=== PATIENT | female | born 1935 | race Hispanic/Latino ===

== ENCOUNTER 2017-03-05 12:42 | Inpatient (IN) | payer MEDICARE ==
[2017-03-05] MEDS ORDERED: MORPHINE ONE (13:12)
[2017-03-05] MEDS ORDERED: MORPHINE IV ONE ×2 (13:35→14:40)
--- NOTE | 2017-03-05 14:35 | XRay Report ---
Left hip 2 views: History: Fall injury left hip pain. Impression: Suspicion of minimally impacted fracture neck of left femur noted. No dislocation or soft tissue calcification. Impression: Suspicion of minimally impacted fracture neck of left femur.
[2017-03-05] MEDS ORDERED: ZOFRAN IV ONE (14:41)
[2017-03-05 15:24] LABS: INR 1.01 (0.87-1.13)
[2017-03-05 15:25] LABS: Partial Thromboplastin Time 26.4 Sec. (24.2-36.6)
[2017-03-05 15:33] LABS: Hematocrit 41.9 % (30.3-42.9); Hemoglobin 13.9 gm/dl (10.1-14.3); Mean Corpuscular HGB Conc 33 % (30-34); Mean Corpuscular Hemoglobin 31 pg (28-32); Mean Corpuscular Volume 94 fl (79-97); Platelet Count 124 K/mm3 (140-440); Red Blood Count 4.45 M/mm3 (3.65-5.03); Red Cell Distribution Width 13.4 % (13.2-15.2); White Blood Count 16.8 K/mm3 (4.5-11.0)
[2017-03-05 15:34] LABS: Alanine Aminotransferase 22 units/L (7-56); Albumin 4.5 g/dL (3.9-5); Albumin/Globulin Ratio 1.4 %; Alkaline Phosphatase 71 units/L (35-129); Anion Gap 21 mmol/L; Blood Urea Nitrogen 13 mg/dL (7-17); Calcium 8.7 mg/dL (8.4-10.2); Carbon Dioxide 23 mmol/L (22-30); Chloride 97.9 mmol/L (98-107); Glucose 91 mg/dL (65-100); Potassium 4.4 mmol/L (3.6-5.0); Sodium 137 mmol/L (137-145); Total Protein 7.7 g/dL (6.3-8.2)
--- NOTE | 2017-03-05 15:39 | Admit Criteria Form ---
Admission Criteria Documentation: MUSCULOSKELETAL DISEASE GRG Clinical Indications for Admission to Inpatient Care (Place 'X' for any and all applicable criteria): Hospital admission is needed for appropriate care of the patient because of 1 or more of the following: [X ]I. Fracture, dislocation, or other musculoskeletal injury requiring inpatient care(medical) as indicated by 1 or more of the following(4)(5)(6)(7) [ ]a) Vertebral fracture requiring observation for instability or neurologic compromise (8) [ ]b) Compartment syndrome (proven or cannot be ruled out during observation level of care) (9) [ ]c) Limb-threatening injury [ ]d) Major injury requiring inpatient stabilization such as traction initiation or external fixation before internal fixation or closure of complex or open fracture [X ]e) Major injury requiring inpatient treatment after emergency or observation level care (as appropriate) [ ]f) Severe pain requiring acute inpatient management [ ]g) Injury with suspicion of abuse or neglect (eg., child, dependent elderly) [ ]II. Newly diagnosed or suspected bone, joint, or orthopedic device infection (e.g., osteomyelitis, septic arthritis) needing 1 or more of the following(1)(2)(3) [ ]a) IV antibiotics that cannot be initiated in other than inpatient setting (e.g., patient too unstable or home infusion not available) [ ]b) Device removal or replacement [ ]c) Bone or soft tissue debridement [ ]d) Joint drainage (drain placement or repetitive aspirations) [ ]III. Severe rheumatologic disease (e.g., systemic lupus erythematosus, rheumatoid arthritis) with complications or comorbidities (Also use Optimal Recovery Care Criteria or General Recovery Criteria as appropriate on the basis of predominant condition), including 1 or more of the following( 10)(11)(12)(13) [ ]a) Severe infection (e.g., LAST IRONER infection, sepsis) (14) [ ]b) Respiratory complications, including 1 or more of the following : [ ]i) Pleural effusion with respiratory compromise [ ]ii) Pulmonary hypertension with congestive failure [ ]iii) Respiratory failure [ ]iv) Pulmonary hemorrhage (15) [ ]c) Hematologic disease, including 1 or more of the following: [ ]i) Coagulopathy with bleeding [ ]ii) Thrombosis with hypercoagulable state [ ]iii) Thrombotic thrombocytopenic purpura [ ]d) Cerebritis with seizures, psychosis, or other severe abnormalities [ ]e) Vertebral destruction with monitoring needed for cervical myelopathy& possible respiratory compromise [ ]f) Exacerbation that requires inpatient treatment (e.g., intravenous immunosuppression) (16) [ ]g) Acute renal failure [ ]h) Cerebritis with seizures, psychosis, Altered mental status, or other neurologic abnormalities [ ]i) Pericardial effusion with tamponade [ ]j) Vertebral destruction, with monitoring needed for cervical myelopathy and possible respiratory compromise [ ]IV. Severe vasculitis with complications or comorbidities (Also use Optimal Recovery Care Criteria General Recovery Criteria as appropriate on the basis of predominant condition), including 1 or more of the following(11)(12)(17)(18)(19)(20) [ ]a) Exacerbation that requires inpatient treatment (e.g., intravenous immunosuppression) (19)(21) [ ]b) Pulmonary hemorrhage (15) [ ]c) LAST IRONER vasculitis with seizures, psychosis, Altered mental status that is severe or persistent, or other severe abnormalities (22) [ ]d) Cerebral infarction [ ]e) Gastrointestinal ischemia [ ]f) Gangrene or threatened amputation [ ]g) Renal failure (16) [ ]h) Other significant complications of vasculitis ( eg., tissue or organ ischemia, organ dysfunction ) [ ]V. Severe myopathy as indicated by 1 or more of the following (28)(29) [ ]a) New onset of airway compromise or inability to swallow [ ]b) Respiratory deterioration with observation needed for impending respiratory failure [ ]c) Exacerbation that requires inpatient treatment (e.g., intravenous immunosuppression) [ ]. Severe crystal gout (arthropathy) indicated by 1 or more of the following (23)(24) [ ]a) Severe pain requiring acute inpatient management [ ]b) Exacerbation that requires inpatient treatment (e.g., intravenous treatment) [ ]VII.Rhabdomyolysis and 1 or more of the following (25)(26)(27) [ ]a) Acute renal failure [ ]b) Need for intravenous hydration after emergency or observation level care (as appropriate) [ ]c) Inability to maintain oral hydration [ ]d) Change in mental status [ ]e) Electrolyte abnormality that remains after emergency or observation level care (as appropriate) [ ]VIII Post amputation complication, as indicated by ANY ONE of the following [ ]a) Infection [ ]b) Dehiscence [ ]c) Myodesis failure [ ]IX. Severe pain requiring acute inpatient management due to musculoskeletal condition [ ]X. Musculoskeletal Disease and ALL of the following: [ ]a) Symptom or finding for which emergency and observation care have failed or are not considered appropriate (Use General Criteria: Observation Care as appropriate) [ ]b) Presence of ANY ONE of the following [ ]i) A General Admission Criteria [ ]ii) A Pediatric General Admission Criteria The original [facility] [employer] content created by [facility] [employer] has been revised. The portions of the content which have been revised are identified through the use of italic text or in bold, and [facility] has neither reviewed nor approved the modified material. All other unmodified content is copyright [facility] [employer]. Please see references footnoted in the original [facility] edition 2016 Admission Criteria Met: Yes
[2017-03-05 15:41] LABS: Bilirubin,Direct < 0.2 mg/dL (0-0.2); Bilirubin,Indirect 0.4 mg/dL
--- NOTE | 2017-03-05 15:45 | Cat Scan Report ---
CT scan of the left hip: History: Fall from pain. Findings: There is minimal cortical buckling noted in the superior lateral aspect of the neck of left femur associated with impaction of trabecula in the region of the neck. No soft tissue calcification. No periosteal reaction or lytic lesion. The acetabulum appears unremarkable. Impression: Minimal buckle fracture superior lateral posterior neck as detailed above. No abnormal articulation at the hip.
[2017-03-05 17:57] LABS: Blastocytes % (Manual) 0 %
[2017-03-05 17:58] LABS: Diff Status Complete; Large Platelets 1+; Platelet Estimate Consistent w Auto; RBC Morphology Normal
--- NOTE | 2017-03-05 18:53 | Emergency Department Report ---
ED General Adult HPI - General Chief complaint: Fall Stated complaint: LEFT HIP PAIN/FALL Time Seen by Provider: 03/05/17 14:14 Source: EMS Mode of arrival: Stretcher Limitations: Altered Mental Status - History of Present Illness Initial comments: Patient states that she was getting up off the couch when she stumbled and fell. She fell down she states "slightly" onto her left hip. She denies any vertigo dizziness episodic weakness or syncope. She did not lose consciousness. She states she has no prior history of hip fracture. She complains of severe pain to the left hip only. She denies any other injury. She was unable to weight bear thereafter. -: Gradual Location: left (hip) Radiation: non-radiation Quality: constant Consistency: constant Improves with: none Worsens with: movement Associated Symptoms: denies other symptoms - Related Data Home Medications Medication Instructions Recorded Confirmed Last Taken Acetaminophen/Diphenhydramine 1 each PO QHS 03/05/17 03/05/17 03/04/17 [Tylenol Pm Ex-Strength Caplet] amLODIPine [Norvasc] 10 mg PO DAILY 03/05/17 03/05/17 03/05/17 Previous Rx's Medication Instructions Recorded Last Taken Type Albuterol Sulfate [Albuterol 0.63% 0.63 mg IH TID PRN #90 ml 12/26/14 Unknown Rx NEBS] Allergies Allergy/AdvReac Type Severity Reaction Status Date / Time cephaeline [Cephaeline] Allergy Rash Verified 09/20/13 16:48 codeine Allergy Rash Verified 09/20/13 16:48 iodine Allergy Rash Verified 09/20/13 16:48 Penicillins Allergy Rash Verified 09/20/13 16:48 ED Review of Systems ROS: Stated complaint: LEFT HIP PAIN/FALL Other details as noted in HPI Constitutional: denies: chills, fever Eyes: denies: eye pain, eye discharge, vision change ENT: denies: ear pain, throat pain Respiratory: denies: cough, shortness of breath, wheezing Cardiovascular: denies: chest pain, palpitations Endocrine: no symptoms reported Gastrointestinal: denies: abdominal pain, nausea, diarrhea Genitourinary: denies: urgency, dysuria, discharge Musculoskeletal: as per HPI. denies: back pain, joint swelling Skin: denies: rash, lesions Neurological: denies: headache, weakness, paresthesias Psychiatric: denies: anxiety, depression Hematological/Lymphatic: denies: easy bleeding, easy bruising ED Past Medical Hx - Past Medical History Hx Hypertension: Yes Hx Congestive Heart Failure: No Hx Sickle Cell Disease: Yes Hx Asthma: Yes Hx COPD: Yes Hx Tuberculosis: No Additional medical history: AORTIC ANEURYSM - Surgical History Hx Appendectomy: Yes Hx Breast Surgery: Yes (tumor removal) Additional Surgical History: hysterectomy - Social History Smoking Status: Never Smoker Substance Use Type: None - Medications Home Medications: Home Medications Medication Instructions Recorded Confirmed Last Taken Type Albuterol Sulfate [Albuterol 0.63% 0.63 mg IH TID PRN #90 ml 12/26/14 Unknown Rx NEBS] Acetaminophen/Diphenhydramine 1 each PO QHS 03/05/17 03/05/17 03/04/17 History [Tylenol Pm Ex-Strength Caplet] amLODIPine [Norvasc] 10 mg PO DAILY 03/05/17 03/05/17 03/05/17 History ED Physical Exam - General Limitations: No Limitations General appearance: alert, in no apparent distress - Head Head exam: Present: atraumatic, normocephalic - Eye Eye exam: Present: normal appearance - ENT ENT exam: Present: normal exam, mucous membranes moist - Neck Neck exam: Present: normal inspection - Respiratory Respiratory exam: Present: normal lung sounds bilaterally. Absent: respiratory distress - Cardiovascular Cardiovascular Exam: Present: regular rate, normal rhythm. Absent: systolic murmur, diastolic murmur, rubs, gallop - GI/Abdominal GI/Abdominal exam: Present: soft, normal bowel sounds. Absent: distended, tenderness, guarding, rebound, rigid - Extremities Exam Extremities exam: Present: other (there is guarding and exquisite tenderness on slight rotation of the left femur. There is no bony deformity. The pelvis does not appear to be tender. There is no shortening or internal rotation.) - Back Exam Back exam: Present: other (deferred due to nature of the injury) - Neurological Exam Neurological exam: Present: alert, oriented X3, CN II-XII intact. Absent: motor sensory deficit - Psychiatric Psychiatric exam: Present: normal affect, normal mood - Skin Skin exam: Present: warm, dry, intact, normal color. Absent: rash ED Course Vital Signs 03/05/17 03/05/17 03/05/17 13:07 13:33 15:48 Temperature 98.7 F Pulse Rate 105 H 95 H Respiratory 18 16 16 Rate Blood Pressure 142/85 136/74 [Right] O2 Sat by Pulse 97 99 Oximetry 03/05/17 18:23 Temperature Pulse Rate 82 Respiratory 16 Rate Blood Pressure 141/76 [Right] O2 Sat by Pulse 99 Oximetry - Reevaluation(s) Reevaluation #1: Patient is given IV fluid and analgesia. It was presumed based on her clinical exam that she would box turner to have a left hip fracture on CT. She indeed did have a buckle fracture of the neck of the femur. 03/05/17 18:56 ED Medical Decision Making - Lab Data Result diagrams: 03/05/17 14:52 03/05/17 14:52 Laboratory Results - last 24 hr 03/05/17 03/05/17 03/05/17 14:52 14:52 14:52 WBC 16.8 H RBC 4.45 Hgb 13.9 Hct 41.9 MCV 94 MCH 31 MCHC 33 RDW 13.4 Plt Count 124 L Eos % (Auto) Order Schedule Clerk Add Manual Diff Complete Total Counted 100 Seg Neuts % (Manual) 57.0 Band Neutrophils % 4.0 Lymphocytes % (Manual) 8.0 L Reactive Lymphs % (Man) 1.0 Monocytes % (Manual) 5.0 Eosinophils % (Manual) 24.0 H Basophils % (Manual) 1.0 Metamyelocytes % 0 Myelocytes % 0 Promyelocytes % 0 Blast Cells % 0 Nucleated RBC % Not Reportable Seg Neutrophils # Man 9.6 H Band Neutrophils # 0.7 Lymphocytes # (Manual) 1.3 Abs React Lymphs (Man) 0.2 Monocytes # (Manual) 0.8 Eosinophils # (Manual) 4.0 H Basophils # (Manual) 0.2 H Metamyelocytes # 0.0 Myelocytes # 0.0 Promyelocytes # 0.0 Blast Cells # 0.0 WBC Morphology Not Reportable Hypersegmented Neuts Not Reportable Hyposegmented Neuts Not Reportable Hypogranular Neuts Not Reportable Smudge Cells Not Reportable Toxic Granulation Not Reportable Toxic Vacuolation Not Reportable Dohle Bodies Not Reportable Pelger-Huet Anomaly Not Reportable Zoe Rods Not Reportable Platelet Estimate Consistent w auto Clumped Platelets Not Reportable Plt Clumps, EDTA Not Reportable Large Platelets 1+ Giant Platelets Not Reportable Platelet Satelliting Not Reportable Plt Morphology Comment Not Reportable RBC Morphology Normal Dimorphic RBCs Not Reportable Polychromasia Not Reportable Hypochromasia Not Reportable Poikilocytosis Not Reportable Anisocytosis Not Reportable Microcytosis Not Reportable Macrocytosis Not Reportable Spherocytes Not Reportable Pappenheimer Bodies Not Reportable Sickle Cells Not Reportable Target Cells Not Reportable Tear Drop Cells Not Reportable Ovalocytes Not Reportable Helmet Cells Not Reportable [place] Bodies Not Reportable [place] Rings Not Reportable [place] Cells Not Reportable Bite Cells Not Reportable Crenated Cell Not Reportable Elliptocytes Not Reportable Acanthocytes (Spur) Not Reportable Rouleaux Not Reportable Hemoglobin C Crystals Not Reportable Schistocytes Not Reportable Malaria parasites Not Reportable Manuel Bodies Not Reportable Hem Pathologist Commnt No PT 13.2 INR 1.01 APTT 26.4 Sodium 137 Potassium 4.4 Chloride 97.9 L Carbon Dioxide 23 Anion Gap 21 BUN 13 Creatinine 0.5 L Estimated GFR > 60 BUN/Creatinine Ratio 26.00 Glucose 91 Calcium 8.7 Total Bilirubin 0.60 Direct Bilirubin < 0.2 Indirect Bilirubin 0.4 AST 19 ALT 22 Alkaline Phosphatase 71 Total Protein 7.7 Albumin 4.5 Albumin/Globulin Ratio 1.4 - Radiology Data Radiology results: report reviewed interpreted by me: CT of the hip showed a buckle fracture of the left neck of the femur. Plain film was negative for fracture. Critical care attestation.: If time is entered above; I have spent that time in minutes in the direct care of this critically ill patient, excluding procedure time. ED Disposition Clinical Impression: Thrombocytopenia Fracture of femoral neck, left Qualifiers: Encounter type: initial encounter Fracture type: closed Qualified Code(s): S72.002A - Fracture of unspecified part of neck of left femur, initial encounter for closed fracture Disposition: 09 OP ADMIT IP TO THIS HOSP Is pt being admited?: Yes Does the pt Need Aspirin: Yes Condition: Stable Referrals: PRIMARY CARE, [Primary Care Provider] - 3-5 Days Time of Disposition: 18:58
[2017-03-05] MEDS ORDERED: BABY ASPIRIN PO ONE (18:59)
--- NOTE | 2017-03-05 21:16 | History and Physical Report ---
History of Present Illness Date of examination: 03/05/17 Date of admission: 03/05/17 19:00 Chief complaint: Left hip pain and severe after accidental fall while getting off the couch couple of hours ago History of present illness: History of present illness: 81-year-old female comes to the emergency room for severe pain in the left hip. Pain is about 10 on a scale of 1-10. Patient has history of hypertension and asthma. Patient states that she was getting up off the couch when she stumbled and fell. She fell down she states "slightly" onto her left hip. She denies any vertigo dizziness episodic weakness or syncope. She did not lose consciousness. She states she has no prior history of hip fracture. She complains of severe pain to the left hip only. She denies any other injury. She was unable to weight bear thereafter. -: Gradual Location: left (hip) Radiation: non-radiation Quality: constant Consistency: constant Improves with: none Worsens with: movement Associated Symptoms: denies other symptoms - Related Data Home Medications Medication Instructions Recorded Confirmed Last Taken Acetaminophen/Diphenhydramine 1 each PO QHS 03/05/17 03/05/17 03/04/17 [Tylenol Pm Ex-Strength Caplet] amLODIPine [Norvasc] 10 mg PO DAILY 03/05/17 03/05/17 03/05/17 Previous Rx's Medication Instructions Recorded Last Taken Type Albuterol Sulfate [Albuterol 0.63% 0.63 mg IH TID PRN #90 ml 12/26/14 Unknown Rx NEBS] Allergies Allergy/AdvReac Type Severity Reaction Status Date / Time cephaeline [Cephaeline] Allergy Rash Verified 09/20/13 16:48 codeine Allergy Rash Verified 09/20/13 16:48 iodine Allergy Rash Verified 09/20/13 16:48 Penicillins Allergy Rash Verified 09/20/13 16:48 ED Review of Systems ROS: Stated complaint: LEFT HIP PAIN/FALL Other details as noted in HPI Constitutional: denies: chills, fever Eyes: denies: eye pain, eye discharge, vision change ENT: denies: ear pain, throat pain Respiratory: denies: cough, shortness of breath, wheezing Cardiovascular: denies: chest pain, palpitations Endocrine: no symptoms reported Gastrointestinal: denies: abdominal pain, nausea, diarrhea Genitourinary: denies: urgency, dysuria, discharge Musculoskeletal: as per HPI. denies: back pain, joint swelling Skin: denies: rash, lesions Neurological: denies: headache, weakness, paresthesias Psychiatric: denies: anxiety, depression Hematological/Lymphatic: denies: easy bleeding, easy bruising ED Past Medical Hx - Past Medical History Hx Hypertension: Yes Hx Congestive Heart Failure: No Hx Sickle Cell Disease: Yes Hx Asthma: Yes Hx COPD: Yes Hx Tuberculosis: No Additional medical history: AORTIC ANEURYSM - Surgical History Hx Appendectomy: Yes Hx Breast Surgery: Yes (tumor removal) Additional Surgical History: hysterectomy - Social History Smoking Status: Never Smoker Substance Use Type: None - Medications Home Medications: Home Medications Medication Instructions Recorded Confirmed Last Taken Type Albuterol Sulfate [Albuterol 0.63% 0.63 mg IH TID PRN #90 ml 12/26/14 Unknown Rx NEBS] Acetaminophen/Diphenhydramine 1 each PO QHS 03/05/17 03/05/17 03/04/17 History [Tylenol Pm Ex-Strength Caplet] amLODIPine [Norvasc] 10 mg PO DAILY 03/05/17 03/05/17 03/05/17 History Medications and Allergies Allergies Allergy/AdvReac Type Severity Reaction Status Date / Time cephaeline [Cephaeline] Allergy Rash Verified 09/20/13 16:48 codeine Allergy Rash Verified 09/20/13 16:48 iodine Allergy Rash Verified 09/20/13 16:48 Penicillins Allergy Rash Verified 09/20/13 16:48 Home Medications Medication Instructions Recorded Confirmed Last Taken Type Albuterol Sulfate [Albuterol 0.63% 0.63 mg IH TID PRN #90 ml 12/26/14 03/05/17 03/04/17 Rx NEBS] Acetaminophen/Diphenhydramine 1 each PO QHS 03/05/17 03/05/17 03/04/17 History [Tylenol Pm Ex-Strength Caplet] amLODIPine [Norvasc] 10 mg PO DAILY 03/05/17 03/05/17 03/05/17 History Exam - Physical Exam Narrative exam: In slight distress because of pain - Constitutional Vitals: Temp Pulse Resp BP Pulse Ox 98.7 F 82 16 141/76 99 03/05/17 13:07 03/05/17 18:23 03/05/17 18:23 03/05/17 18:23 03/05/17 18:23 General appearance: Present: no acute distress, mild distress, well-nourished - EENT Eyes: Present: PERRL ENT: hearing intact, clear oral mucosa - Neck Neck: Present: supple, normal ROM - Respiratory Respiratory effort: normal Respiratory: bilateral: CTA - Cardiovascular Heart rate: 80 Rhythm: regular Heart Sounds: Present: S1 & S2. Absent: rub, click - Extremities Extremities: no ischemia, pulses intact, pulses symmetrical, No edema, abnormal (decreased range of motion at left hip. Very painful range of motion. Unable to bear weight.) Peripheral Pulses: within normal limits - Abdominal General gastrointestinal: Present: soft, non-tender, non-distended, normal bowel sounds Female genitourinary: Present: normal - Rectal Rectal Exam: deferred - Integumentary Integumentary: Present: clear, warm, dry - Musculoskeletal Musculoskeletal: gait normal, strength equal bilaterally - Psychiatric Psychiatric: appropriate mood/affect, intact judgment & insight - Neurologic Neurologic: CNII-XII intact, other (cannot walk) Results - Labs CBC & Chem 7: 03/05/17 14:52 03/05/17 14:52 Labs: Laboratory Last Values WBC 16.8 K/mm3 (4.5-11.0) H 03/05/17 14:52 RBC 4.45 M/mm3 (3.65-5.03) 03/05/17 14:52 Hgb 13.9 gm/dl (10.1-14.3) 03/05/17 14:52 Hct 41.9 % (30.3-42.9) 03/05/17 14:52 MCV 94 fl (79-97) 03/05/17 14:52 MCH 31 pg (28-32) 03/05/17 14:52 MCHC 33 % (30-34) 03/05/17 14:52 RDW 13.4 % (13.2-15.2) 03/05/17 14:52 Plt Count 124 K/mm3 (140-440) L 03/05/17 14:52 Eos % (Auto) Loss Prevention Lead 03/05/17 14:52 Add Manual Diff Complete 03/05/17 14:52 Total Counted 100 03/05/17 14:52 Seg Neuts % (Manual) 57.0 % (40.0-70.0) 03/05/17 14:52 Band Neutrophils % 4.0 % 03/05/17 14:52 Lymphocytes % (Manual) 8.0 % (13.4-35.0) L 03/05/17 14:52 Reactive Lymphs % (Man) 1.0 % 03/05/17 14:52 Monocytes % (Manual) 5.0 % (0.0-7.3) 03/05/17 14:52 Eosinophils % (Manual) 24.0 % (0.0-4.3) H 03/05/17 14:52 Basophils % (Manual) 1.0 % (0.0-1.8) 03/05/17 14:52 Metamyelocytes % 0 % 03/05/17 14:52 Myelocytes % 0 % 03/05/17 14:52 Promyelocytes % 0 % 03/05/17 14:52 Blast Cells % 0 % 03/05/17 14:52 Nucleated RBC % Not Reportable 03/05/17 14:52 Seg Neutrophils # Man 9.6 K/mm3 (1.8-7.7) H 03/05/17 14:52 Band Neutrophils # 0.7 K/mm3 03/05/17 14:52 Lymphocytes # (Manual) 1.3 K/mm3 (1.2-5.4) 03/05/17 14:52 Abs React Lymphs (Man) 0.2 K/mm3 03/05/17 14:52 Monocytes # (Manual) 0.8 K/mm3 (0.0-0.8) 03/05/17 14:52 Eosinophils # (Manual) 4.0 K/mm3 (0.0-0.4) H 03/05/17 14:52 Basophils # (Manual) 0.2 K/mm3 (0.0-0.1) H 03/05/17 14:52 Metamyelocytes # 0.0 K/mm3 03/05/17 14:52 Myelocytes # 0.0 K/mm3 03/05/17 14:52 Promyelocytes # 0.0 K/mm3 03/05/17 14:52 Blast Cells # 0.0 K/mm3 03/05/17 14:52 WBC Morphology Not Reportable 03/05/17 14:52 Hypersegmented Neuts Not Reportable 03/05/17 14:52 Hyposegmented Neuts Not Reportable 03/05/17 14:52 Hypogranular Neuts Not Reportable 03/05/17 14:52 Smudge Cells Not Reportable 03/05/17 14:52 Toxic Granulation Not Reportable 03/05/17 14:52 Toxic Vacuolation Not Reportable 03/05/17 14:52 Dohle Bodies Not Reportable 03/05/17 14:52 Pelger-Huet Anomaly Not Reportable 03/05/17 14:52 Zoe Rods Not Reportable 03/05/17 14:52 Platelet Estimate Consistent w auto 03/05/17 14:52 Clumped Platelets Not Reportable 03/05/17 14:52 Plt Clumps, EDTA Not Reportable 03/05/17 14:52 Large Platelets 1+ 03/05/17 14:52 Giant Platelets Not Reportable 03/05/17 14:52 Platelet Satelliting Not Reportable 03/05/17 14:52 Plt Morphology Comment Not Reportable 03/05/17 14:52 RBC Morphology Normal 03/05/17 14:52 Dimorphic RBCs Not Reportable 03/05/17 14:52 Polychromasia Not Reportable 03/05/17 14:52 Hypochromasia Not Reportable 03/05/17 14:52 Poikilocytosis Not Reportable 03/05/17 14:52 Anisocytosis Not Reportable 03/05/17 14:52 Microcytosis Not Reportable 03/05/17 14:52 Macrocytosis Not Reportable 03/05/17 14:52 Spherocytes Not Reportable 03/05/17 14:52 Pappenheimer Bodies Not Reportable 03/05/17 14:52 Sickle Cells Not Reportable 03/05/17 14:52 Target Cells Not Reportable 03/05/17 14:52 Tear Drop Cells Not Reportable 03/05/17 14:52 Ovalocytes Not Reportable 03/05/17 14:52 Helmet Cells Not Reportable 03/05/17 14:52 [place] Bodies Not Reportable 03/05/17 14:52 [place] Rings Not Reportable 03/05/17 14:52 [place] Cells Not Reportable 03/05/17 14:52 Bite Cells Not Reportable 03/05/17 14:52 Crenated Cell Not Reportable 03/05/17 14:52 Elliptocytes Not Reportable 03/05/17 14:52 Acanthocytes (Spur) Not Reportable 03/05/17 14:52 Rouleaux Not Reportable 03/05/17 14:52 Hemoglobin C Crystals Not Reportable 03/05/17 14:52 Schistocytes Not Reportable 03/05/17 14:52 Malaria parasites Not Reportable 03/05/17 14:52 Manuel Bodies Not Reportable 03/05/17 14:52 Hem Pathologist Commnt No 03/05/17 14:52 PT 13.2 Sec. (12.2-14.9) 03/05/17 14:52 INR 1.01 (0.87-1.13) 03/05/17 14:52 APTT 26.4 Sec. (24.2-36.6) 03/05/17 14:52 Sodium 137 mmol/L (137-145) 03/05/17 14:52 Potassium 4.4 mmol/L (3.6-5.0) 03/05/17 14:52 Chloride 97.9 mmol/L (98-107) L 03/05/17 14:52 Carbon Dioxide 23 mmol/L (22-30) 03/05/17 14:52 Anion Gap 21 mmol/L 03/05/17 14:52 BUN 13 mg/dL (7-17) 03/05/17 14:52 Creatinine 0.5 mg/dL (0.7-1.2) L 03/05/17 14:52 Estimated GFR > 60 ml/min 03/05/17 14:52 BUN/Creatinine Ratio 26.00 % 03/05/17 14:52 Glucose 91 mg/dL (65-100) 03/05/17 14:52 Calcium 8.7 mg/dL (8.4-10.2) 03/05/17 14:52 Total Bilirubin 0.60 mg/dL (0.1-1.2) 03/05/17 14:52 Direct Bilirubin < 0.2 mg/dL (0-0.2) 03/05/17 14:52 Indirect Bilirubin 0.4 mg/dL 03/05/17 14:52 AST 19 units/L (5-40) 03/05/17 14:52 ALT 22 units/L (7-56) 03/05/17 14:52 Alkaline Phosphatase 71 units/L (35-129) 03/05/17 14:52 Total Protein 7.7 g/dL (6.3-8.2) 03/05/17 14:52 Albumin 4.5 g/dL (3.9-5) 03/05/17 14:52 Albumin/Globulin Ratio 1.4 % 03/05/17 14:52 Short CBC 03/05/17 Range/Units 14:52 WBC 16.8 H (4.5-11.0) K/mm3 Hgb 13.9 (10.1-14.3) gm/dl Hct 41.9 (30.3-42.9) % Plt Count 124 L (140-440) K/mm3 BMP 03/05/17 14:52 Sodium 137 Potassium 4.4 Chloride 97.9 L Carbon Dioxide 23 BUN 13 Creatinine 0.5 L Glucose 91 Calcium 8.7 Liver Function 03/05/17 Range/Units 14:52 Total Bilirubin 0.60 (0.1-1.2) mg/dL Direct Bilirubin < 0.2 (0-0.2) mg/dL AST 19 (5-40) units/L ALT 22 (7-56) units/L Alkaline Phosphatase 71 (35-129) units/L Albumin 4.5 (3.9-5) g/dL - Imaging and Cardiology Imaging and Cardiology: CT scan of left hip shows some minimal buckle fracture superior lateral posterior neck. No abnormal articulation at the hip. Assessment and Plan Advance Directives: Yes (full code) VTE prophylaxis?: Chemical Plan of care discussed with patient/family: Yes - Patient Problems (1) Fracture of femoral neck, left Current Visit: Yes Status: Acute Qualifiers: Encounter type: initial encounter Fracture type: closed Open fracture type: O Fracture healing: F Qualified Code(s): S72.002A - Fracture of unspecified part of neck of left femur, initial encounter for closed fracture Plan to address problem: Left hip fracture a bucKLE fracture. May need open reduction internal fixation. Dr. Fuller orthopedic surgeon consulted. Patient to be kept nothing by mouth if surgery is being done tomorrow. Diet order for assuming that the surgery will be done on 03/07/2017. Adequate pain control. (2) Hypertension Current Visit: Yes Status: Chronic Qualifiers: Hypertension type: essential hypertension Qualified Code(s): I10 - Essential (primary) hypertension Plan to address problem: Continue antihypertensives. (3) Asthma Current Visit: Yes Status: Chronic Qualifiers: Asthma severity: A Asthma complication type: uncomplicated Plan to address problem: Albuterol inhaler as necessary. Patient may use her own. (4) DVT prophylaxis Current Visit: Yes Status: Acute Plan to address problem: Patient started on Lovenox 40 mg subcutaneous daily.
[2017-03-05] MEDS ORDERED: NON-FORMULARY (Albuterol Sulfate [Albuterol 0.63% Nebs] 0.63 MG) IH PRN (21:19)
[2017-03-05] MEDS ORDERED: MILK OF MAGNESIA PO PRN (21:20)
[2017-03-05] MEDS ORDERED: DILAUDID IV PRN (21:20)
[2017-03-05] MEDS ORDERED: DULCOLAX PR PRN (21:20)
[2017-03-05] MEDS ORDERED: ZOFRAN IV PRN (21:20)
[2017-03-05] MEDS: NORVASC PO SCH (22:55)
[2017-03-05] MEDS: TYLENOL PO PRN (22:55)
[2017-03-05] MEDS: PEPCID IV SCH (22:56)
[2017-03-05] MEDS: D5NS 1,000 ML IV SCH (22:56)
[2017-03-06] MEDS: TYLENOL PO PRN ×2 (04:34→19:27)
[2017-03-06 05:28] LABS: Hematocrit 40.6 % (30.3-42.9); Hemoglobin 13.2 gm/dl (10.1-14.3); Mean Corpuscular HGB Conc 32 % (30-34); Mean Corpuscular Hemoglobin 31 pg (28-32); Mean Corpuscular Volume 96 fl (79-97); Platelet Count 117 K/mm3 (140-440); Red Blood Count 4.25 M/mm3 (3.65-5.03); Red Cell Distribution Width 13.5 % (13.2-15.2); White Blood Count 10.8 K/mm3 (4.5-11.0)
[2017-03-06 05:57] LABS: Alanine Aminotransferase 19 units/L (7-56); Albumin 3.6 g/dL (3.9-5); Albumin/Globulin Ratio 1.2 %; Alkaline Phosphatase 62 units/L (35-129); Anion Gap 16 mmol/L; Blood Urea Nitrogen 14 mg/dL (7-17); Calcium 8.1 mg/dL (8.4-10.2); Carbon Dioxide 25 mmol/L (22-30); Glucose 82 mg/dL (65-100); Potassium 4.2 mmol/L (3.6-5.0); Sodium 139 mmol/L (137-145); Total Protein 6.7 g/dL (6.3-8.2)
[2017-03-06 07:24] LABS: Basophils % (Manual) 0 % (0.0-1.8); Blastocytes % (Manual) 0 %
[2017-03-06 07:25] LABS: Diff Status Complete; Platelet Estimate Appears Decreased
[2017-03-06] MEDS: NORVASC PO SCH (10:02)
[2017-03-06] MEDS: PEPCID IV SCH ×2 (10:03→21:11)
--- NOTE | 2017-03-06 10:57 | Progress Note ---
Assessment and Plan Assessment and plan: 81F w pmh of asthma and htn who present sp fall, with inability to get up or walk and left hip pain (1) Fracture of femoral neck, left Orthopedic surgery consult pending, will keep NPO after MN in case of surgical procedure tomorrow Patient is medically optimized for surgical management of hip fracture (2) Hypertension Continue antihypertensives. (3) chronic Asthma stable, not in exacerbation Albuterol inhaler as necessary. Patient may use her own. (4) DVT prophylaxis Patient started on Lovenox 40 mg subcutaneous daily. History Interval history: she is c/o that she is unable to move her left hip and has severe pain when any maneuver is attempted on the hip, currently laying in bed and has no pain at present. Hospitalist Physical - Constitutional Vitals: Temp Pulse Resp BP Pulse Ox 98.0 F 79 20 134/65 94 03/06/17 09:40 03/06/17 10:02 03/06/17 09:40 03/06/17 10:02 03/05/17 19:56 General appearance: Present: no acute distress, mild distress, well-nourished - EENT Eyes: Present: PERRL, EOM intact ENT: hearing intact, clear oral mucosa, dentition normal - Neck Neck: Present: supple, normal ROM - Respiratory Respiratory effort: normal Respiratory: bilateral: CTA - Cardiovascular Rhythm: regular Heart Sounds: Present: S1 & S2 - Extremities Extremities: no ischemia, pulses intact Peripheral Pulses: within normal limits - Abdominal General gastrointestinal: soft, non-tender, non-distended, normal bowel sounds - Integumentary Integumentary: Present: clear, warm, dry - Psychiatric Psychiatric: appropriate mood/affect, intact judgment & insight - Neurologic Neurologic: CNII-XII intact, no focal deficits, no moves all extremities ( unable to move left hip, attempted maneuver of the hip produced severe pain) Results - Labs CBC & Chem 7: 03/06/17 04:51 03/06/17 04:51 Labs: Laboratory Last Values WBC 10.8 K/mm3 (4.5-11.0) 03/06/17 04:51 RBC 4.25 M/mm3 (3.65-5.03) 03/06/17 04:51 Hgb 13.2 gm/dl (10.1-14.3) 03/06/17 04:51 Hct 40.6 % (30.3-42.9) 03/06/17 04:51 MCV 96 fl (79-97) 03/06/17 04:51 MCH 31 pg (28-32) 03/06/17 04:51 MCHC 32 % (30-34) 03/06/17 04:51 RDW 13.5 % (13.2-15.2) 03/06/17 04:51 Plt Count 117 K/mm3 (140-440) L 03/06/17 04:51 Eos % (Auto) [facility] Professor 03/05/17 14:52 Add Manual Diff Complete 03/06/17 04:51 Total Counted 100 03/06/17 04:51 Seg Neuts % (Manual) 45.0 % (40.0-70.0) 03/06/17 04:51 Band Neutrophils % 0 % 03/06/17 04:51 Lymphocytes % (Manual) 17.0 % (13.4-35.0) 03/06/17 04:51 Reactive Lymphs % (Man) 0 % 03/06/17 04:51 Monocytes % (Manual) 1.0 % (0.0-7.3) 03/06/17 04:51 Eosinophils % (Manual) 37.0 % (0.0-4.3) H 03/06/17 04:51 Basophils % (Manual) 0 % (0.0-1.8) 03/06/17 04:51 Metamyelocytes % 0 % 03/06/17 04:51 Myelocytes % 0 % 03/06/17 04:51 Promyelocytes % 0 % 03/06/17 04:51 Blast Cells % 0 % 03/06/17 04:51 Nucleated RBC % Not Reportable 03/06/17 04:51 Seg Neutrophils # Man 4.9 K/mm3 (1.8-7.7) 03/06/17 04:51 Band Neutrophils # 0.0 K/mm3 03/06/17 04:51 Lymphocytes # (Manual) 1.8 K/mm3 (1.2-5.4) 03/06/17 04:51 Abs React Lymphs (Man) 0.0 K/mm3 03/06/17 04:51 Monocytes # (Manual) 0.1 K/mm3 (0.0-0.8) 03/06/17 04:51 Eosinophils # (Manual) 4.0 K/mm3 (0.0-0.4) H 03/06/17 04:51 Basophils # (Manual) 0.0 K/mm3 (0.0-0.1) 03/06/17 04:51 Metamyelocytes # 0.0 K/mm3 03/06/17 04:51 Myelocytes # 0.0 K/mm3 03/06/17 04:51 Promyelocytes # 0.0 K/mm3 03/06/17 04:51 Blast Cells # 0.0 K/mm3 03/06/17 04:51 WBC Morphology Not Reportable 03/06/17 04:51 Hypersegmented Neuts Not Reportable 03/06/17 04:51 Hyposegmented Neuts Not Reportable 03/06/17 04:51 Hypogranular Neuts Not Reportable 03/06/17 04:51 Smudge Cells Not Reportable 03/06/17 04:51 Toxic Granulation Not Reportable 03/06/17 04:51 Toxic Vacuolation Not Reportable 03/06/17 04:51 Dohle Bodies Not Reportable 03/06/17 04:51 Pelger-Huet Anomaly Not Reportable 03/06/17 04:51 Zoe Rods Not Reportable 03/06/17 04:51 Platelet Estimate Appears decreased 03/06/17 04:51 Clumped Platelets Not Reportable 03/06/17 04:51 Plt Clumps, EDTA Not Reportable 03/06/17 04:51 Large Platelets Not Reportable 03/06/17 04:51 Giant Platelets Not Reportable 03/06/17 04:51 Platelet Satelliting Not Reportable 03/06/17 04:51 Plt Morphology Comment Not Reportable 03/06/17 04:51 RBC Morphology Not Reportable 03/06/17 04:51 Dimorphic RBCs Not Reportable 03/06/17 04:51 Polychromasia Not Reportable 03/06/17 04:51 Hypochromasia Not Reportable 03/06/17 04:51 Poikilocytosis Not Reportable 03/06/17 04:51 Anisocytosis Not Reportable 03/06/17 04:51 Microcytosis Not Reportable 03/06/17 04:51 Macrocytosis Not Reportable 03/06/17 04:51 Spherocytes Not Reportable 03/06/17 04:51 Pappenheimer Bodies Not Reportable 03/06/17 04:51 Sickle Cells Not Reportable 03/06/17 04:51 Target Cells Not Reportable 03/06/17 04:51 Tear Drop Cells Not Reportable 03/06/17 04:51 Ovalocytes Not Reportable 03/06/17 04:51 Helmet Cells Not Reportable 03/06/17 04:51 [place] Bodies Not Reportable 03/06/17 04:51 [place] Rings Not Reportable 03/06/17 04:51 [place] Cells Not Reportable 03/06/17 04:51 Bite Cells Not Reportable 03/06/17 04:51 Crenated Cell Not Reportable 03/06/17 04:51 Elliptocytes Not Reportable 03/06/17 04:51 Acanthocytes (Spur) Not Reportable 03/06/17 04:51 Rouleaux Not Reportable 03/06/17 04:51 Hemoglobin C Crystals Not Reportable 03/06/17 04:51 Schistocytes Not Reportable 03/06/17 04:51 Malaria parasites Not Reportable 03/06/17 04:51 Manuel Bodies Not Reportable 03/06/17 04:51 Hem Pathologist Commnt C 03/06/17 04:51 PT 13.2 Sec. (12.2-14.9) 03/05/17 14:52 INR 1.01 (0.87-1.13) 03/05/17 14:52 APTT 26.4 Sec. (24.2-36.6) 03/05/17 14:52 Sodium 139 mmol/L (137-145) 03/06/17 04:51 Potassium 4.2 mmol/L (3.6-5.0) 03/06/17 04:51 Chloride 102.0 mmol/L (98-107) 03/06/17 04:51 Carbon Dioxide 25 mmol/L (22-30) 03/06/17 04:51 Anion Gap 16 mmol/L 03/06/17 04:51 BUN 14 mg/dL (7-17) 03/06/17 04:51 Creatinine 0.5 mg/dL (0.7-1.2) L 03/06/17 04:51 Estimated GFR > 60 ml/min 03/06/17 04:51 BUN/Creatinine Ratio 28.00 % 03/06/17 04:51 Glucose 82 mg/dL (65-100) 03/06/17 04:51 Calcium 8.1 mg/dL (8.4-10.2) L 03/06/17 04:51 Total Bilirubin 0.70 mg/dL (0.1-1.2) 03/06/17 04:51 Direct Bilirubin < 0.2 mg/dL (0-0.2) 03/05/17 14:52 Indirect Bilirubin 0.4 mg/dL 03/05/17 14:52 AST 17 units/L (5-40) 03/06/17 04:51 ALT 19 units/L (7-56) 03/06/17 04:51 Alkaline Phosphatase 62 units/L (35-129) 03/06/17 04:51 Total Protein 6.7 g/dL (6.3-8.2) 03/06/17 04:51 Albumin 3.6 g/dL (3.9-5) L 03/06/17 04:51 Albumin/Globulin Ratio 1.2 % 03/06/17 04:51
[2017-03-07] MEDS: PEPCID IV SCH (10:00)
[2017-03-07] MEDS: NORVASC PO SCH (10:00)
--- NOTE | 2017-03-07 11:47 | Progress Note ---
Assessment and Plan Assessment and plan: 81F w pmh of asthma and htn who present sp fall, with inability to get up or walk and left hip pain (1) Fracture of femoral neck, left Orthopedic surgery consult pending, will keep NPO after MN in case of surgical procedure tomorrow Patient is medically optimized for surgical management of hip fracture (2) Hypertension Continue antihypertensives. (3) chronic Asthma stable, not in exacerbation Albuterol inhaler as necessary. Patient may use her own. (4) DVT prophylaxis Patient started on Lovenox 40 mg subcutaneous daily. History Interval history: she is c/o that she is unable to move her left hip and has severe pain when any maneuver is attempted on the hip, currently laying in bed and has no pain at present. Hospitalist Physical - Physical exam Narrative exam: General appearance: Present: no acute distress, mild distress, well-nourished - EENT Eyes: Present: PERRL, EOM intact ENT: hearing intact, clear oral mucosa, dentition normal - Neck Neck: Present: supple, normal ROM - Respiratory Respiratory effort: normal Respiratory: bilateral: CTA - Cardiovascular Rhythm: regular Heart Sounds: Present: S1 & S2 - Extremities Extremities: no ischemia, pulses intact Peripheral Pulses: within normal limits - Abdominal General gastrointestinal: soft, non-tender, non-distended, normal bowel sounds - Integumentary Integumentary: Present: clear, warm, dry - Psychiatric Psychiatric: appropriate mood/affect, intact judgment & insight - Neurologic Neurologic: CNII-XII intact, no focal deficits, no moves all extremities ( unable to move left hip, attempted maneuver of the hip produced severe pain) - Constitutional Vitals: Temp Pulse Resp BP Pulse Ox 98.8 F 81 18 149/86 96 03/07/17 10:00 03/07/17 10:00 03/07/17 10:00 03/07/17 10:00 03/07/17 10:00 General appearance: Present: no acute distress, mild distress, well-nourished Results - Labs CBC & Chem 7: 03/06/17 04:51 03/06/17 04:51 Labs: Laboratory Last Values WBC 10.8 K/mm3 (4.5-11.0) 03/06/17 04:51 RBC 4.25 M/mm3 (3.65-5.03) 03/06/17 04:51 Hgb 13.2 gm/dl (10.1-14.3) 03/06/17 04:51 Hct 40.6 % (30.3-42.9) 03/06/17 04:51 MCV 96 fl (79-97) 03/06/17 04:51 MCH 31 pg (28-32) 03/06/17 04:51 MCHC 32 % (30-34) 03/06/17 04:51 RDW 13.5 % (13.2-15.2) 03/06/17 04:51 Plt Count 117 K/mm3 (140-440) L 03/06/17 04:51 Eos % (Auto) [employer] Agent 03/05/17 14:52 Add Manual Diff Complete 03/06/17 04:51 Total Counted 100 03/06/17 04:51 Seg Neuts % (Manual) 45.0 % (40.0-70.0) 03/06/17 04:51 Band Neutrophils % 0 % 03/06/17 04:51 Lymphocytes % (Manual) 17.0 % (13.4-35.0) 03/06/17 04:51 Reactive Lymphs % (Man) 0 % 03/06/17 04:51 Monocytes % (Manual) 1.0 % (0.0-7.3) 03/06/17 04:51 Eosinophils % (Manual) 37.0 % (0.0-4.3) H 03/06/17 04:51 Basophils % (Manual) 0 % (0.0-1.8) 03/06/17 04:51 Metamyelocytes % 0 % 03/06/17 04:51 Myelocytes % 0 % 03/06/17 04:51 Promyelocytes % 0 % 03/06/17 04:51 Blast Cells % 0 % 03/06/17 04:51 Nucleated RBC % Not Reportable 03/06/17 04:51 Seg Neutrophils # Man 4.9 K/mm3 (1.8-7.7) 03/06/17 04:51 Band Neutrophils # 0.0 K/mm3 03/06/17 04:51 Lymphocytes # (Manual) 1.8 K/mm3 (1.2-5.4) 03/06/17 04:51 Abs React Lymphs (Man) 0.0 K/mm3 03/06/17 04:51 Monocytes # (Manual) 0.1 K/mm3 (0.0-0.8) 03/06/17 04:51 Eosinophils # (Manual) 4.0 K/mm3 (0.0-0.4) H 03/06/17 04:51 Basophils # (Manual) 0.0 K/mm3 (0.0-0.1) 03/06/17 04:51 Metamyelocytes # 0.0 K/mm3 03/06/17 04:51 Myelocytes # 0.0 K/mm3 03/06/17 04:51 Promyelocytes # 0.0 K/mm3 03/06/17 04:51 Blast Cells # 0.0 K/mm3 03/06/17 04:51 WBC Morphology Not Reportable 03/06/17 04:51 Hypersegmented Neuts Not Reportable 03/06/17 04:51 Hyposegmented Neuts Not Reportable 03/06/17 04:51 Hypogranular Neuts Not Reportable 03/06/17 04:51 Smudge Cells Not Reportable 03/06/17 04:51 Toxic Granulation Not Reportable 03/06/17 04:51 Toxic Vacuolation Not Reportable 03/06/17 04:51 Dohle Bodies Not Reportable 03/06/17 04:51 Pelger-Huet Anomaly Not Reportable 03/06/17 04:51 Zoe Rods Not Reportable 03/06/17 04:51 Platelet Estimate Appears decreased 03/06/17 04:51 Clumped Platelets Not Reportable 03/06/17 04:51 Plt Clumps, EDTA Not Reportable 03/06/17 04:51 Large Platelets Not Reportable 03/06/17 04:51 Giant Platelets Not Reportable 03/06/17 04:51 Platelet Satelliting Not Reportable 03/06/17 04:51 Plt Morphology Comment Not Reportable 03/06/17 04:51 RBC Morphology Not Reportable 03/06/17 04:51 Dimorphic RBCs Not Reportable 03/06/17 04:51 Polychromasia Not Reportable 03/06/17 04:51 Hypochromasia Not Reportable 03/06/17 04:51 Poikilocytosis Not Reportable 03/06/17 04:51 Anisocytosis Not Reportable 03/06/17 04:51 Microcytosis Not Reportable 03/06/17 04:51 Macrocytosis Not Reportable 03/06/17 04:51 Spherocytes Not Reportable 03/06/17 04:51 Pappenheimer Bodies Not Reportable 03/06/17 04:51 Sickle Cells Not Reportable 03/06/17 04:51 Target Cells Not Reportable 03/06/17 04:51 Tear Drop Cells Not Reportable 03/06/17 04:51 Ovalocytes Not Reportable 03/06/17 04:51 Helmet Cells Not Reportable 03/06/17 04:51 [place] Bodies Not Reportable 03/06/17 04:51 [place] Rings Not Reportable 03/06/17 04:51 [place] Cells Not Reportable 03/06/17 04:51 Bite Cells Not Reportable 03/06/17 04:51 Crenated Cell Not Reportable 03/06/17 04:51 Elliptocytes Not Reportable 03/06/17 04:51 Acanthocytes (Spur) Not Reportable 03/06/17 04:51 Rouleaux Not Reportable 03/06/17 04:51 Hemoglobin C Crystals Not Reportable 03/06/17 04:51 Schistocytes Not Reportable 03/06/17 04:51 Malaria parasites Not Reportable 03/06/17 04:51 Manuel Bodies Not Reportable 03/06/17 04:51 Hem Pathologist Commnt C 03/06/17 04:51 PT 13.2 Sec. (12.2-14.9) 03/05/17 14:52 INR 1.01 (0.87-1.13) 03/05/17 14:52 APTT 26.4 Sec. (24.2-36.6) 03/05/17 14:52 Sodium 139 mmol/L (137-145) 03/06/17 04:51 Potassium 4.2 mmol/L (3.6-5.0) 03/06/17 04:51 Chloride 102.0 mmol/L (98-107) 03/06/17 04:51 Carbon Dioxide 25 mmol/L (22-30) 03/06/17 04:51 Anion Gap 16 mmol/L 03/06/17 04:51 BUN 14 mg/dL (7-17) 03/06/17 04:51 Creatinine 0.5 mg/dL (0.7-1.2) L 03/06/17 04:51 Estimated GFR > 60 ml/min 03/06/17 04:51 BUN/Creatinine Ratio 28.00 % 03/06/17 04:51 Glucose 82 mg/dL (65-100) 03/06/17 04:51 Calcium 8.1 mg/dL (8.4-10.2) L 03/06/17 04:51 Total Bilirubin 0.70 mg/dL (0.1-1.2) 03/06/17 04:51 Direct Bilirubin < 0.2 mg/dL (0-0.2) 03/05/17 14:52 Indirect Bilirubin 0.4 mg/dL 03/05/17 14:52 AST 17 units/L (5-40) 03/06/17 04:51 ALT 19 units/L (7-56) 03/06/17 04:51 Alkaline Phosphatase 62 units/L (35-129) 03/06/17 04:51 Total Protein 6.7 g/dL (6.3-8.2) 03/06/17 04:51 Albumin 3.6 g/dL (3.9-5) L 03/06/17 04:51 Albumin/Globulin Ratio 1.2 % 03/06/17 04:51
--- NOTE | 2017-03-07 19:26 | Consultation ---
History of Present Illness - [facility] Consult date: 03/07/17 Consult reason: fracture History of present illness: 81-year-old female who complains of left hip pain states she was getting up off the couch when she stumbled and fell afterwards she complained of increasing pain and inability to bear weight on that extremity. She was seen in the emergency room x-rays were obtained revealing impacted left femoral neck fracture minimal displacement Medications and Allergies Allergies Allergy/AdvReac Type Severity Reaction Status Date / Time cephaeline [Cephaeline] Allergy Rash Verified 09/20/13 16:48 codeine Allergy Rash Verified 09/20/13 16:48 iodine Allergy Rash Verified 09/20/13 16:48 Penicillins Allergy Rash Verified 09/20/13 16:48 Home Medications Medication Instructions Recorded Confirmed Last Taken Type Albuterol Sulfate [Albuterol 0.63% 0.63 mg IH TID PRN #90 ml 12/26/14 03/05/17 03/04/17 Rx NEBS] Acetaminophen/Diphenhydramine 1 each PO QHS 03/05/17 03/05/17 03/04/17 History [Tylenol Pm Ex-Strength Caplet] amLODIPine [Norvasc] 10 mg PO DAILY 03/05/17 03/05/17 03/05/17 History Active Meds: Active Medications Acetaminophen (Tylenol) 650 mg PO Q4H PRN PRN Reason: Pain MILD(1-3)/Fever >100.5/[place] Last Admin: 03/06/17 19:27 Dose: 650 mg Albuterol (Proventil) 2.5 mg IH TIDRT PRN PRN Reason: Shortness Of Breath Amlodipine Besylate (Norvasc) 10 mg PO DAILY [facility] Last Admin: 03/07/17 10:00 Dose: Not Given Bisacodyl (Dulcolax) 10 mg DE QDAY PRN PRN Reason: Constipation unrelieved by MOM Famotidine (Pepcid) 20 mg IV BID [facility] Last Admin: 03/07/17 10:00 Dose: Not Given Hydromorphone HCl (Dilaudid) 0.5 mg IV Q3H PRN PRN Reason: Pain , Severe (7-10) Dextrose/Sodium Chloride (D5ns) 1,000 mls @ 75 mls/hr IV DIRECT [facility] Last Admin: 03/05/17 22:56 Dose: 75 mls/hr Magnesium Hydroxide (Milk Of Magnesia) 30 ml PO Q4H PRN PRN Reason: Constipation Ondansetron HCl (Zofran) 4 mg IV Q8H PRN PRN Reason: N/V unrelieved by Reglan Oxycodone/Acetaminophen (Percocet 5/325) 1 tab PO Q6H PRN PRN Reason: Pain, Moderate (4-6) Assessment and Plan Assessment - Impacted left femoral neck fracture Recommendations- cannulated screw fixation left hip
[2017-03-08] MEDS: PEPCID IV SCH ×3 (00:36→21:36)
[2017-03-08] MEDS: D5NS 1,000 ML IV SCH (00:36)
--- NOTE | 2017-03-08 08:31 | Anesthesia Consultation ---
Anesthesia Consult and Med Hx Date of service: 03/08/17 - Airway Anesthetic Teeth Evaluation: Poor ROM Head & Neck: Adequate Mental/Hyoid Distance: Adequate Mallampati Class: Class II Intubation Access Assessment: Probably Good - Pre-Operative Health Status ASA Pre-Surgery Classification: ASA3 Proposed Anesthetic Plan: General, Spinal - Pulmonary Hx Asthma: Yes COPD: Yes (on breathing treatment) Hx Pneumonia: Yes - Cardiovascular System Hx Hypertension: Yes Hx Peripheral Vascular Disease: Yes (aortic aneurysm) - Central Nervous System Hx Psychiatric Problems: Yes (dementia) - Gastrointestinal Hx Ulcer: No - Hematic Hx Anemia: Yes - Additional Comments Anesthesia Medical History Comments: pt's daughter to sign consent
--- NOTE | 2017-03-08 08:36 | Anesthesia Day of Surgery ---
Anesthesia Day of Surgery - Day of Surgery Patient Examined: Yes Patient H&P Reviewed: Yes Patient is NPO: Yes
[2017-03-08] MEDS ORDERED: PROVENTIL IH NR (09:00)
[2017-03-08] MEDS: NORVASC PO SCH (09:34)
[2017-03-08] MEDS ORDERED: NACL 0.9% 1000 ML 1,000 ML ONE (10:26)
[2017-03-08] MEDS ORDERED: DIPRIVAN 10 MG/ML IV ONE (10:37)
[2017-03-08] MEDS ORDERED: DILAUDID ONE (10:37)
[2017-03-08] MEDS: NACL 0.9% 1000 ML 1,000 ML IV SCH ×2 (11:02→16:27)
--- NOTE | 2017-03-08 11:41 | Progress Note ---
Assessment and Plan Assessment and plan: 81F w pmh of asthma and htn who present sp fall, with inability to get up or walk and left hip pain (1) Fracture of femoral neck, left Orthopedic surgery consult appreciated, with Dr Fuller, for cannulated screw fixation left hip today Patient is medically optimized for surgical management of hip fracture (2) Hypertension Continue antihypertensives. (3) chronic Asthma stable, not in exacerbation Albuterol inhaler as necessary. Patient may use her own. (4) DVT prophylaxis Lovenox 40 mg subcutaneous daily. History Interval history: she is c/o that she is unable to move her left hip and has severe pain when any maneuver is attempted on the hip, currently laying in bed and has no pain at present. Hospitalist Physical - Physical exam Narrative exam: General appearance: Present: no acute distress, mild distress, well-nourished - EENT Eyes: Present: PERRL, EOM intact ENT: hearing intact, clear oral mucosa, dentition normal - Neck Neck: Present: supple, normal ROM - Respiratory Respiratory effort: normal Respiratory: bilateral: CTA - Cardiovascular Rhythm: regular Heart Sounds: Present: S1 & S2 - Extremities Extremities: no ischemia, pulses intact Peripheral Pulses: within normal limits - Abdominal General gastrointestinal: soft, non-tender, non-distended, normal bowel sounds - Integumentary Integumentary: Present: clear, warm, dry - Psychiatric Psychiatric: appropriate mood/affect, intact judgment & insight - Neurologic Neurologic: CNII-XII intact, no focal deficits, no moves all extremities ( unable to move left hip, attempted maneuver of the hip produced severe pain) - Constitutional Vitals: Temp Pulse Resp BP Pulse Ox 99.1 F 89 20 164/91 95 03/08/17 11:20 03/08/17 11:20 03/08/17 11:20 03/08/17 11:20 03/08/17 11:20 General appearance: Present: no acute distress, mild distress, well-nourished Results - Labs CBC & Chem 7: 03/06/17 04:51 03/06/17 04:51 Labs: Laboratory Last Values WBC 10.8 K/mm3 (4.5-11.0) 03/06/17 04:51 RBC 4.25 M/mm3 (3.65-5.03) 03/06/17 04:51 Hgb 13.2 gm/dl (10.1-14.3) 03/06/17 04:51 Hct 40.6 % (30.3-42.9) 03/06/17 04:51 MCV 96 fl (79-97) 03/06/17 04:51 MCH 31 pg (28-32) 03/06/17 04:51 MCHC 32 % (30-34) 03/06/17 04:51 RDW 13.5 % (13.2-15.2) 03/06/17 04:51 Plt Count 117 K/mm3 (140-440) L 03/06/17 04:51 Eos % (Auto) Hospital Secretary 03/05/17 14:52 Add Manual Diff Complete 03/06/17 04:51 Total Counted 100 03/06/17 04:51 Seg Neuts % (Manual) 45.0 % (40.0-70.0) 03/06/17 04:51 Band Neutrophils % 0 % 03/06/17 04:51 Lymphocytes % (Manual) 17.0 % (13.4-35.0) 03/06/17 04:51 Reactive Lymphs % (Man) 0 % 03/06/17 04:51 Monocytes % (Manual) 1.0 % (0.0-7.3) 03/06/17 04:51 Eosinophils % (Manual) 37.0 % (0.0-4.3) H 03/06/17 04:51 Basophils % (Manual) 0 % (0.0-1.8) 03/06/17 04:51 Metamyelocytes % 0 % 03/06/17 04:51 Myelocytes % 0 % 03/06/17 04:51 Promyelocytes % 0 % 03/06/17 04:51 Blast Cells % 0 % 03/06/17 04:51 Nucleated RBC % Not Reportable 03/06/17 04:51 Seg Neutrophils # Man 4.9 K/mm3 (1.8-7.7) 03/06/17 04:51 Band Neutrophils # 0.0 K/mm3 03/06/17 04:51 Lymphocytes # (Manual) 1.8 K/mm3 (1.2-5.4) 03/06/17 04:51 Abs React Lymphs (Man) 0.0 K/mm3 03/06/17 04:51 Monocytes # (Manual) 0.1 K/mm3 (0.0-0.8) 03/06/17 04:51 Eosinophils # (Manual) 4.0 K/mm3 (0.0-0.4) H 03/06/17 04:51 Basophils # (Manual) 0.0 K/mm3 (0.0-0.1) 03/06/17 04:51 Metamyelocytes # 0.0 K/mm3 03/06/17 04:51 Myelocytes # 0.0 K/mm3 03/06/17 04:51 Promyelocytes # 0.0 K/mm3 03/06/17 04:51 Blast Cells # 0.0 K/mm3 03/06/17 04:51 WBC Morphology Not Reportable 03/06/17 04:51 Hypersegmented Neuts Not Reportable 03/06/17 04:51 Hyposegmented Neuts Not Reportable 03/06/17 04:51 Hypogranular Neuts Not Reportable 03/06/17 04:51 Smudge Cells Not Reportable 03/06/17 04:51 Toxic Granulation Not Reportable 03/06/17 04:51 Toxic Vacuolation Not Reportable 03/06/17 04:51 Dohle Bodies Not Reportable 03/06/17 04:51 Pelger-Huet Anomaly Not Reportable 03/06/17 04:51 Zoe Rods Not Reportable 03/06/17 04:51 Platelet Estimate Appears decreased 03/06/17 04:51 Clumped Platelets Not Reportable 03/06/17 04:51 Plt Clumps, EDTA Not Reportable 03/06/17 04:51 Large Platelets Not Reportable 03/06/17 04:51 Giant Platelets Not Reportable 03/06/17 04:51 Platelet Satelliting Not Reportable 03/06/17 04:51 Plt Morphology Comment Not Reportable 03/06/17 04:51 RBC Morphology Not Reportable 03/06/17 04:51 Dimorphic RBCs Not Reportable 03/06/17 04:51 Polychromasia Not Reportable 03/06/17 04:51 Hypochromasia Not Reportable 03/06/17 04:51 Poikilocytosis Not Reportable 03/06/17 04:51 Anisocytosis Not Reportable 03/06/17 04:51 Microcytosis Not Reportable 03/06/17 04:51 Macrocytosis Not Reportable 03/06/17 04:51 Spherocytes Not Reportable 03/06/17 04:51 Pappenheimer Bodies Not Reportable 03/06/17 04:51 Sickle Cells Not Reportable 03/06/17 04:51 Target Cells Not Reportable 03/06/17 04:51 Tear Drop Cells Not Reportable 03/06/17 04:51 Ovalocytes Not Reportable 03/06/17 04:51 Helmet Cells Not Reportable 03/06/17 04:51 [place] Bodies Not Reportable 03/06/17 04:51 [place] Rings Not Reportable 03/06/17 04:51 [place] Cells Not Reportable 03/06/17 04:51 Bite Cells Not Reportable 03/06/17 04:51 Crenated Cell Not Reportable 03/06/17 04:51 Elliptocytes Not Reportable 03/06/17 04:51 Acanthocytes (Spur) Not Reportable 03/06/17 04:51 Rouleaux Not Reportable 03/06/17 04:51 Hemoglobin C Crystals Not Reportable 03/06/17 04:51 Schistocytes Not Reportable 03/06/17 04:51 Malaria parasites Not Reportable 03/06/17 04:51 Manuel Bodies Not Reportable 03/06/17 04:51 Hem Pathologist Commnt C 03/06/17 04:51 PT 13.2 Sec. (12.2-14.9) 03/05/17 14:52 INR 1.01 (0.87-1.13) 03/05/17 14:52 APTT 26.4 Sec. (24.2-36.6) 03/05/17 14:52 Sodium 139 mmol/L (137-145) 03/06/17 04:51 Potassium 4.2 mmol/L (3.6-5.0) 03/06/17 04:51 Chloride 102.0 mmol/L (98-107) 03/06/17 04:51 Carbon Dioxide 25 mmol/L (22-30) 03/06/17 04:51 Anion Gap 16 mmol/L 03/06/17 04:51 BUN 14 mg/dL (7-17) 03/06/17 04:51 Creatinine 0.5 mg/dL (0.7-1.2) L 03/06/17 04:51 Estimated GFR > 60 ml/min 03/06/17 04:51 BUN/Creatinine Ratio 28.00 % 03/06/17 04:51 Glucose 82 mg/dL (65-100) 03/06/17 04:51 Calcium 8.1 mg/dL (8.4-10.2) L 03/06/17 04:51 Total Bilirubin 0.70 mg/dL (0.1-1.2) 03/06/17 04:51 Direct Bilirubin < 0.2 mg/dL (0-0.2) 03/05/17 14:52 Indirect Bilirubin 0.4 mg/dL 03/05/17 14:52 AST 17 units/L (5-40) 03/06/17 04:51 ALT 19 units/L (7-56) 03/06/17 04:51 Alkaline Phosphatase 62 units/L (35-129) 03/06/17 04:51 Total Protein 6.7 g/dL (6.3-8.2) 03/06/17 04:51 Albumin 3.6 g/dL (3.9-5) L 03/06/17 04:51 Albumin/Globulin Ratio 1.2 % 03/06/17 04:51
[2017-03-08] MEDS ORDERED: VANCOMYCIN/NS 1 GM/250 ML 1 GM/250 ML BAG IV NR (12:00)
[2017-03-08] MEDS ORDERED: PEPCID IV NR (12:00)
[2017-03-08] MEDS ORDERED: XYLOCAINE MPF 2% ONE (12:51)
[2017-03-08] MEDS ORDERED: NEO SYNEPHRINE ONE (12:57)
--- NOTE | 2017-03-08 13:18 | Procedure Note ---
Date of procedure: 03/08/17 Pre-op diagnosis: impacted left femoral neck fracture Post-op diagnosis: same Procedure: Procedure Cannulated screw fixation left hip Indications 81-year-old female who fell at home sustaining impacted left femoral neck fracture no other complaints Procedure The patient was brought to the OR on the recovery room bed following induction with spinal anesthesia the patient was then placed onto the OR table supine with us a sandbag underneath the left hip next the left hip was prepped and draped in the usual sterile manner. A timeout procedure was done to identify the patient as well as the correct operative site using C-arm a guidewire was placed along the anterior portion of the hip to visualize the insertion of our guidepin next week using a stab wound along the lateral border of the proximal thigh and the guidepin was then inserted into the femoral neck and head area position was checked via C-arm and was found to be in a proper location following this a 80 mm 7.5 cannulated screw was inserted and this was followed by 2 subsequent screws measuring 80 and 75 mm in length again C-arm was done to visualize the placement of our screws and they appeared to be within the head in both AP and lateral views next the wound was irrigated metallic priscilla were used for the stab wounds. Dressings were applied the patient was taken to postanesthesia recovery in stable condition Anesthesia: spinal Surgeon: MCKAY GRAFF Estimated blood loss: minimal Pathology: none Condition: stable Disposition: PACU
--- NOTE | 2017-03-08 14:03 | Post Anesthesia Evaluation ---
- Post Anesthesia Evaluation Patient Participated: Yes Airway Patent: Yes Stable Respiratory Function: Yes Nausea/Vomiting: No Temp > 96.8F: Yes Pain Manageable: Yes Adequeate Hydration: Yes Anesthesia Complications: No Block Receding Appropriately: Yes Patient on Ventilator: No
[2017-03-08] MEDS: PERCOCET 5/325 PO PRN (17:00)
[2017-03-08] MEDS ORDERED: SODIUM CHLORIDE FLUSH SYRINGE 10 ML IV NR (18:00)
[2017-03-09] MEDS: PROVENTIL IH PRN ×2 (00:56→22:56)
[2017-03-09] MEDS: PERCOCET 5/325 PO PRN ×3 (02:46→22:51)
--- NOTE | 2017-03-09 07:13 | XRay Report ---
Left hip 2 views: History: Left hip fracture: Findings: There is internal fixation noted of fracture fracture neck femur. The metallic screws through the fracture site appears stable. Normal articulation with the acetabulum. Impression: Stable internal fixation.
--- NOTE | 2017-03-09 07:34 | Progress Note ---
Assessment and Plan Assessment and plan: 81F w pmh of asthma and htn who present sp fall, with inability to get up or walk and left hip pain (1) Fracture of femoral neck, left Orthopedic surgery consult appreciated, with Dr Fuller, sp cannulated screw fixation left hip 03/08/17 PT consult today (2) Hypertension Continue antihypertensives. (3) chronic Asthma stable, not in exacerbation Albuterol inhaler as necessary. (4) DVT prophylaxis Lovenox 40 mg subcutaneous daily. Since discharge home tomorrow with home PT, PT consult pending History Interval history: S/p Left hip athroplasty 03/08/17, post op pain is well controlled Hospitalist Physical - Physical exam Narrative exam: General appearance: Present: no acute distress, mild distress, well-nourished - EENT Eyes: Present: PERRL, EOM intact ENT: hearing intact, clear oral mucosa, dentition normal - Neck Neck: Present: supple, normal ROM - Respiratory Respiratory effort: normal Respiratory: bilateral: CTA - Cardiovascular Rhythm: regular Heart Sounds: Present: S1 & S2 - Extremities Extremities: no ischemia, pulses intact Peripheral Pulses: within normal limits - Abdominal General gastrointestinal: soft, non-tender, non-distended, normal bowel sounds - Integumentary Integumentary: Present: clear, warm, dry - Psychiatric Psychiatric: appropriate mood/affect, intact judgment & insight - Neurologic Neurologic: CNII-XII intact, no focal deficits, moves all extremities - Constitutional Vitals: Temp Pulse Resp BP Pulse Ox 97.7 F 93 H 18 133/76 92 03/09/17 01:00 03/09/17 01:00 03/09/17 02:46 03/09/17 01:00 03/09/17 01:00 General appearance: Present: no acute distress, mild distress, well-nourished Results - Labs CBC & Chem 7: 03/09/17 08:30 03/09/17 08:30 Labs: Laboratory Last Values WBC 10.8 K/mm3 (4.5-11.0) 03/06/17 04:51 RBC 4.25 M/mm3 (3.65-5.03) 03/06/17 04:51 Hgb 13.2 gm/dl (10.1-14.3) 03/06/17 04:51 Hct 40.6 % (30.3-42.9) 03/06/17 04:51 MCV 96 fl (79-97) 03/06/17 04:51 MCH 31 pg (28-32) 03/06/17 04:51 MCHC 32 % (30-34) 03/06/17 04:51 RDW 13.5 % (13.2-15.2) 03/06/17 04:51 Plt Count 117 K/mm3 (140-440) L 03/06/17 04:51 Eos % (Auto) Perioperative Assistant 03/05/17 14:52 Add Manual Diff Complete 03/06/17 04:51 Total Counted 100 03/06/17 04:51 Seg Neuts % (Manual) 45.0 % (40.0-70.0) 03/06/17 04:51 Band Neutrophils % 0 % 03/06/17 04:51 Lymphocytes % (Manual) 17.0 % (13.4-35.0) 03/06/17 04:51 Reactive Lymphs % (Man) 0 % 03/06/17 04:51 Monocytes % (Manual) 1.0 % (0.0-7.3) 03/06/17 04:51 Eosinophils % (Manual) 37.0 % (0.0-4.3) H 03/06/17 04:51 Basophils % (Manual) 0 % (0.0-1.8) 03/06/17 04:51 Metamyelocytes % 0 % 03/06/17 04:51 Myelocytes % 0 % 03/06/17 04:51 Promyelocytes % 0 % 03/06/17 04:51 Blast Cells % 0 % 03/06/17 04:51 Nucleated RBC % Not Reportable 03/06/17 04:51 Seg Neutrophils # Man 4.9 K/mm3 (1.8-7.7) 03/06/17 04:51 Band Neutrophils # 0.0 K/mm3 03/06/17 04:51 Lymphocytes # (Manual) 1.8 K/mm3 (1.2-5.4) 03/06/17 04:51 Abs React Lymphs (Man) 0.0 K/mm3 03/06/17 04:51 Monocytes # (Manual) 0.1 K/mm3 (0.0-0.8) 03/06/17 04:51 Eosinophils # (Manual) 4.0 K/mm3 (0.0-0.4) H 03/06/17 04:51 Basophils # (Manual) 0.0 K/mm3 (0.0-0.1) 03/06/17 04:51 Metamyelocytes # 0.0 K/mm3 03/06/17 04:51 Myelocytes # 0.0 K/mm3 03/06/17 04:51 Promyelocytes # 0.0 K/mm3 03/06/17 04:51 Blast Cells # 0.0 K/mm3 03/06/17 04:51 WBC Morphology Not Reportable 03/06/17 04:51 Hypersegmented Neuts Not Reportable 03/06/17 04:51 Hyposegmented Neuts Not Reportable 03/06/17 04:51 Hypogranular Neuts Not Reportable 03/06/17 04:51 Smudge Cells Not Reportable 03/06/17 04:51 Toxic Granulation Not Reportable 03/06/17 04:51 Toxic Vacuolation Not Reportable 03/06/17 04:51 Dohle Bodies Not Reportable 03/06/17 04:51 Pelger-Huet Anomaly Not Reportable 03/06/17 04:51 Zoe Rods Not Reportable 03/06/17 04:51 Platelet Estimate Appears decreased 03/06/17 04:51 Clumped Platelets Not Reportable 03/06/17 04:51 Plt Clumps, EDTA Not Reportable 03/06/17 04:51 Large Platelets Not Reportable 03/06/17 04:51 Giant Platelets Not Reportable 03/06/17 04:51 Platelet Satelliting Not Reportable 03/06/17 04:51 Plt Morphology Comment Not Reportable 03/06/17 04:51 RBC Morphology Not Reportable 03/06/17 04:51 Dimorphic RBCs Not Reportable 03/06/17 04:51 Polychromasia Not Reportable 03/06/17 04:51 Hypochromasia Not Reportable 03/06/17 04:51 Poikilocytosis Not Reportable 03/06/17 04:51 Anisocytosis Not Reportable 03/06/17 04:51 Microcytosis Not Reportable 03/06/17 04:51 Macrocytosis Not Reportable 03/06/17 04:51 Spherocytes Not Reportable 03/06/17 04:51 Pappenheimer Bodies Not Reportable 03/06/17 04:51 Sickle Cells Not Reportable 03/06/17 04:51 Target Cells Not Reportable 03/06/17 04:51 Tear Drop Cells Not Reportable 03/06/17 04:51 Ovalocytes Not Reportable 03/06/17 04:51 Helmet Cells Not Reportable 03/06/17 04:51 Kern-Ray Bodies Not Reportable 03/06/17 04:51 Corolla Rings Not Reportable 03/06/17 04:51 Tomahawk Cells Not Reportable 03/06/17 04:51 Bite Cells Not Reportable 03/06/17 04:51 Crenated Cell Not Reportable 03/06/17 04:51 Elliptocytes Not Reportable 03/06/17 04:51 Acanthocytes (Spur) Not Reportable 03/06/17 04:51 Rouleaux Not Reportable 03/06/17 04:51 Hemoglobin C Crystals Not Reportable 03/06/17 04:51 Schistocytes Not Reportable 03/06/17 04:51 Malaria parasites Not Reportable 03/06/17 04:51 Manuel Bodies Not Reportable 03/06/17 04:51 Hem Pathologist Commnt C 03/06/17 04:51 PT 13.2 Sec. (12.2-14.9) 03/05/17 14:52 INR 1.01 (0.87-1.13) 03/05/17 14:52 APTT 26.4 Sec. (24.2-36.6) 03/05/17 14:52 Sodium 139 mmol/L (137-145) 03/06/17 04:51 Potassium 4.2 mmol/L (3.6-5.0) 03/06/17 04:51 Chloride 102.0 mmol/L (98-107) 03/06/17 04:51 Carbon Dioxide 25 mmol/L (22-30) 03/06/17 04:51 Anion Gap 16 mmol/L 03/06/17 04:51 BUN 14 mg/dL (7-17) 03/06/17 04:51 Creatinine 0.5 mg/dL (0.7-1.2) L 03/06/17 04:51 Estimated GFR > 60 ml/min 03/06/17 04:51 BUN/Creatinine Ratio 28.00 % 03/06/17 04:51 Glucose 82 mg/dL (65-100) 03/06/17 04:51 Calcium 8.1 mg/dL (8.4-10.2) L 03/06/17 04:51 Total Bilirubin 0.70 mg/dL (0.1-1.2) 03/06/17 04:51 Direct Bilirubin < 0.2 mg/dL (0-0.2) 03/05/17 14:52 Indirect Bilirubin 0.4 mg/dL 03/05/17 14:52 AST 17 units/L (5-40) 03/06/17 04:51 ALT 19 units/L (7-56) 03/06/17 04:51 Alkaline Phosphatase 62 units/L (35-129) 03/06/17 04:51 Total Protein 6.7 g/dL (6.3-8.2) 03/06/17 04:51 Albumin 3.6 g/dL (3.9-5) L 03/06/17 04:51 Albumin/Globulin Ratio 1.2 % 03/06/17 04:51
--- NOTE | 2017-03-09 08:39 | Query- Nutrition ---
Dear Ye Date: 03/09/17 Refrigeration Tech/CDS:____Maynor Hancock Phone#: [phone] Exercise your independent professional judgment when responding to query. Questions asked do not imply a particular answer is desired or expected. We greatly appreciate your clarification on this issue. Clinical Documentation States: 81 year old female was admitted on 03/05/17. The Progress note (03/09/17) states " Assessment and plan: 81F w pmh of asthma and htn who present sp fall, with inability to get up or walk and left hip pain (1) Fracture of femoral neck, left Orthopedic surgery consult appreciated, with Dr Fuller, sp cannulated screw fixation left hip 03/08/17 PT consult today " Clinical Findings Show: BMI: 19.5 Albumin: 3.6 Please select the most appropriate option 3 [x] Mild Malnutrition [] Mild - Moderate Malnutrition [] Moderate - Severe Malnutrition [] Severe Malnutrition Serum Albumin 2.8 to 3.4 g/dl or Pre-albumin 5 to 17 mg/dl1,2 Inadequate nutritional intake1,2,3,4 NPO > 5 days Weight loss: 5% in 1 month or 7.5% in 3 months or 10% in 6 months1, 3,4 BMI 16 to 18.4 or Weight <90% of ideal body weight1,2,3,4 Serum Albumin < 2.8 g/ dl1,2 Lymphocytes < 1500/ L2 Inadequate nutritional intake3, high stress e.g. major trauma, sepsis,pancreatitis, martin etc. Decubitus ulcers1,2, , skin breakdown2, easy hair pluckability2 Weight <80% standard for height2 Triceps skin fold <3 mm2 Mid-arm muscle circumference <15 cm2 Creatinine-height index <60% standard2 [ ] Cachexia [ ] Emaciated w/Malnutrition [ ] Other: [ ] Unable to determine [ ] Comment/Explanation: Present on Admission: [ x] Yes (Y) [ ] Clinically undeterminable (W) [ ] No (N) Please also document response in your Progress Notes and/or Discharge Summary and indicate if the condition was present on admission. MTDD
[2017-03-09 08:43] LABS: Hematocrit 38.5 % (30.3-42.9); Hemoglobin 12.8 gm/dl (10.1-14.3); Mean Corpuscular HGB Conc 33 % (30-34); Mean Corpuscular Hemoglobin 31 pg (28-32); Mean Corpuscular Volume 94 fl (79-97); Platelet Count 120 K/mm3 (140-440); Red Cell Distribution Width 13.3 % (13.2-15.2); White Blood Count 10.1 K/mm3 (4.5-11.0)
[2017-03-09 08:58] LABS: Anion Gap 15 mmol/L; Blood Urea Nitrogen 11 mg/dL (7-17); Carbon Dioxide 24 mmol/L (22-30); Chloride 103.7 mmol/L (98-107); Glucose 91 mg/dL (65-100); Potassium 3.6 mmol/L (3.6-5.0); Sodium 139 mmol/L (137-145)
--- NOTE | 2017-03-09 09:37 | Progress Note ---
Subjective Date of service: 03/09/17 Interval history: Pt seen post op day 1, not yet ambulating due to type of surgery, satisfied with anesthesia. Objective - Constitutional Vitals: Vital Signs - 12hr 03/08/17 03/08/17 03/09/17 21:36 22:00 00:15 Temperature Pulse Rate [ 94 H Anterior Bilateral Upper Lobe] Pulse Rate [ From Monitor] Respiratory 18 18 Rate Respiratory 20 Rate [Anterior Bilateral Upper Lobe] Blood Pressure [Left Radial Artery] O2 Sat by Pulse Oximetry 03/09/17 03/09/17 03/09/17 00:25 01:00 02:46 Temperature 97.7 F Pulse Rate [ 94 H Anterior Bilateral Upper Lobe] Pulse Rate [ 93 H From Monitor] Respiratory 18 18 Rate Respiratory 20 Rate [Anterior Bilateral Upper Lobe] Blood Pressure 133/76 [Left Radial Artery] O2 Sat by Pulse 92 Oximetry 03/09/17 03/09/17 07:25 08:19 Temperature 98.1 F Pulse Rate [ Anterior Bilateral Upper Lobe] Pulse Rate [ 96 H From Monitor] Respiratory 18 Rate Respiratory Rate [Anterior Bilateral Upper Lobe] Blood Pressure 151/85 [Left Radial Artery] O2 Sat by Pulse 96 95 Oximetry - Labs CBC & Chem 7: 03/09/17 08:30 03/09/17 08:30 Labs: Abnormal lab results 03/09/17 03/09/17 Range/Units 08:30 08:30 Plt Count 120 L (140-440) K/mm3 Creatinine 0.5 L (0.7-1.2) mg/dL Calcium 8.0 L (8.4-10.2) mg/dL
[2017-03-09] MEDS: PEPCID PO SCH ×2 (09:51→22:18)
[2017-03-09] MEDS: NORVASC PO SCH (09:51)
--- NOTE | 2017-03-09 14:52 | Progress Note ---
Assessment and Plan Assessment - Impacted left femoral neck fracture Recommendations- cannulated screw fixation left hip Subjective Date of service: 03/09/17 Interval history: No complaints noted, incision site clean and dry drainage noted Objective Vital signs: Vital Signs - 12hr 03/09/17 03/09/17 03/09/17 07:25 08:19 09:51 Temperature 98.1 F Pulse Rate 96 H Pulse Rate [ 96 H From Monitor] Respiratory 18 Rate Blood Pressure 151/85 [Left Radial Artery] O2 Sat by Pulse 96 95 Oximetry - Labs CBC & BMP: 03/09/17 08:30 03/09/17 08:30 Labs: Abnormal lab results 03/09/17 03/09/17 Range/Units 08:30 08:30 Plt Count 120 L (140-440) K/mm3 Creatinine 0.5 L (0.7-1.2) mg/dL Calcium 8.0 L (8.4-10.2) mg/dL
[2017-03-10] MEDS: PERCOCET 5/325 PO PRN ×2 (09:28→23:13)
[2017-03-10] MEDS: NORVASC PO SCH (09:28)
[2017-03-10] MEDS: PEPCID PO SCH ×2 (09:28→23:13)
--- NOTE | 2017-03-10 13:11 | Progress Note ---
Assessment and Plan - Patient Problems (1) Fracture of femoral neck, left Current Visit: Yes Status: Acute Qualifiers: Encounter type: initial encounter Fracture type: closed Open fracture type: O Fracture healing: F Qualified Code(s): S72.002A - Fracture of unspecified part of neck of left femur, initial encounter for closed fracture Plan to address problem: Left hip fracture a bucKLE fracture. Had screw fixation 03/08/17.Postop doing well (2) Hypertension Current Visit: Yes Status: Chronic Qualifiers: Hypertension type: essential hypertension Qualified Code(s): I10 - Essential (primary) hypertension Plan to address problem: Continue antihypertensives. (3) Asthma Current Visit: Yes Status: Chronic Qualifiers: Asthma severity: A Asthma complication type: uncomplicated Plan to address problem: Albuterol inhaler as necessary. Patient may use her own. (4) DVT prophylaxis Current Visit: Yes Status: Acute Plan to address problem: Patient started on Lovenox 40 mg subcutaneous daily. (5) Discharge planning issues Current Visit: Yes Status: Acute Plan to address problem: Will discharge if cleared by orthopedic surgery Subjective Date of service: 03/10/17 Principal diagnosis: S/p L Hip FX Interval history: Post op doing well Objective - Exam Narrative Exam: In slight distress because of pain - Constitutional Vitals: Vital Signs - 12hr 03/10/17 03/10/17 03/10/17 02:02 08:20 09:28 Temperature 98 F Pulse Rate 104 H Pulse Rate [ 96 H Anterior Bilateral Upper Lobe] Pulse Rate [ 104 H From Monitor] Respiratory 20 22 Rate Respiratory 16 Rate [Anterior Bilateral Upper Lobe] Blood Pressure 148/87 Blood Pressure 145/87 [Left Radial Artery] O2 Sat by Pulse 94 Oximetry General appearance: Present: no acute distress, well-nourished - EENT Eyes: PERRL, EOM intact ENT: hearing intact, clear oral mucosa Ears: bilateral: normal - Neck Neck: supple, normal ROM - Respiratory Respiratory effort: normal Respiratory: bilateral: CTA - Breasts Breasts: normal - Cardiovascular Rhythm: regular Heart Sounds: Present: S1 & S2. Absent: gallop, rub Extremities: pulses intact, No edema, normal color, Full ROM - Gastrointestinal General gastrointestinal: Present: soft, non-tender, non-distended, normal bowel sounds - Genitourinary Female genitourinary: normal - Integumentary Integumentary: clear, warm, dry - Musculoskeletal Musculoskeletal: 1, strength equal bilaterally - Neurologic Neurologic: moves all extremities - Psychiatric Psychiatric: memory intact, appropriate mood/affect, intact judgment & insight - Labs CBC & Chem 7: 03/09/17 08:30 03/09/17 08:30
[2017-03-10] MEDS: D5NS 1,000 ML IV SCH (14:53)
[2017-03-10] MEDS: PROVENTIL IH PRN (19:49)
[2017-03-11] MEDS: PERCOCET 5/325 PO PRN ×3 (05:59→23:19)
[2017-03-11] MEDS: D5NS 1,000 ML IV SCH (06:01)
[2017-03-11] MEDS: NORVASC PO SCH (10:23)
[2017-03-11] MEDS: PEPCID PO SCH ×2 (10:23→23:19)
--- NOTE | 2017-03-11 14:49 | Progress Note ---
Assessment and Plan - Patient Problems (1) Fracture of femoral neck, left Current Visit: Yes Status: Acute Qualifiers: Encounter type: initial encounter Fracture type: closed Open fracture type: O Fracture healing: F Qualified Code(s): S72.002A - Fracture of unspecified part of neck of left femur, initial encounter for closed fracture Plan to address problem: Left hip fracture a bucKLE fracture. Had screw fixation 03/08/17.Postop doing well (2) Hypertension Current Visit: Yes Status: Chronic Qualifiers: Hypertension type: essential hypertension Qualified Code(s): I10 - Essential (primary) hypertension Plan to address problem: Continue antihypertensives. (3) Asthma Current Visit: Yes Status: Chronic Qualifiers: Asthma severity: A Asthma complication type: uncomplicated Plan to address problem: Albuterol inhaler as necessary. Patient may use her own. (4) DVT prophylaxis Current Visit: Yes Status: Acute Plan to address problem: Patient started on Lovenox 40 mg subcutaneous daily. (5) Discharge planning issues Current Visit: Yes Status: Acute Plan to address problem: Will discharge if cleared by orthopedic surgery Awaiting SNF placement Subjective Date of service: 03/11/17 Principal diagnosis: S/p L Hip FX Interval history: Post op doing well Objective - Exam Narrative Exam: In slight distress because of pain - Constitutional Vitals: Vital Signs - 12hr 03/11/17 03/11/17 03/11/17 04:01 04:11 07:00 Temperature 97.5 F L 97.5 F L 98.1 F Pulse Rate Pulse Rate [ 75 80 104 H From Monitor] Respiratory 20 20 19 Rate Blood Pressure Blood Pressure 147/90 [Left Arm] Blood Pressure 143/82 143/82 [Left Radial Artery] O2 Sat by Pulse 98 96 95 Oximetry 03/11/17 10:23 Temperature Pulse Rate 108 H Pulse Rate [ From Monitor] Respiratory Rate Blood Pressure 132/80 Blood Pressure [Left Arm] Blood Pressure [Left Radial Artery] O2 Sat by Pulse Oximetry General appearance: Present: no acute distress, well-nourished - EENT Eyes: PERRL, EOM intact ENT: hearing intact, clear oral mucosa Ears: bilateral: normal - Neck Neck: supple, normal ROM - Respiratory Respiratory effort: normal Respiratory: bilateral: CTA - Breasts Breasts: normal - Cardiovascular Rhythm: regular Heart Sounds: Present: S1 & S2. Absent: gallop, rub Extremities: pulses intact, No edema, normal color, Full ROM - Gastrointestinal General gastrointestinal: Present: soft, non-tender, non-distended, normal bowel sounds - Genitourinary Female genitourinary: normal - Integumentary Integumentary: clear, warm, dry - Musculoskeletal Musculoskeletal: 1, strength equal bilaterally - Neurologic Neurologic: moves all extremities - Psychiatric Psychiatric: memory intact, appropriate mood/affect, intact judgment & insight - Labs CBC & Chem 7: 03/09/17 08:30 03/09/17 08:30
[2017-03-11 23:02] VITALS: BP 146/86
[2017-03-12] MEDS: PROVENTIL IH PRN (02:57)
--- NOTE | 2017-03-12 07:44 | Discharge Summary ---
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 She was seen by orthopedic surgery and had uneventful arthroplasty. She was seen by PT after the procedure who recommended subacute rehabilitation facility placement. She was subsequently placed in subacute rehabilitation facility. She was continued on her home medications for her chronic conditions. Discharge diagnoses (1) Fracture of femoral neck, left (2) Hypertension (3) Asthma (4) Ambulatory dysfunction (5) Debility Disposition: DC/[place]-03 SNF W [facility] Time spent for discharge: 33 minutes Core Measure Documentation - Palliative Care Palliative Care/ Comfort Measures: Not Applicable - Core Measures Any of the following diagnoses?: none Exam - Constitutional Vitals: Temp Pulse Resp BP Pulse Ox 98.2 F 88 20 146/86 96 03/12/17 07:00 03/12/17 07:00 03/12/17 07:00 03/12/17 07:00 03/12/17 07:00 General appearance: Present: no acute distress, well-nourished - EENT Eyes: Present: PERRL ENT: hearing intact, clear oral mucosa - Neck Neck: Present: supple, normal ROM - Respiratory Respiratory effort: normal Respiratory: bilateral: CTA - Cardiovascular Heart Sounds: Present: S1 & S2. Absent: rub, click - Extremities Extremities: pulses symmetrical, No edema Peripheral Pulses: within normal limits - Abdominal General gastrointestinal: Present: soft, non-tender, non-distended, normal bowel sounds Female genitourinary: Present: normal - Integumentary Integumentary: Present: clear, warm, dry - Musculoskeletal Musculoskeletal: gait normal, strength equal bilaterally - Psychiatric Psychiatric: appropriate mood/affect, intact judgment & insight - Neurologic Neurologic: CNII-XII intact, moves all extremities Plan Follow up with: PRIMARY CARE,MD [Primary Care Provider] - 3-5 Days Prescriptions: oxyCODONE /ACETAMINOPHEN [Percocet 5/325 mg] 1 tab PO Q6H PRN #7 tablet PRN Reason: Pain, Moderate (4-6)
[2017-03-12] MEDS: PERCOCET 5/325 PO PRN (08:38)
[2017-03-12] MEDS: PEPCID PO SCH (10:54)
[2017-03-12] MEDS: NORVASC PO SCH (10:55)
== END 2017-03-12 14:15 | DRG 481 ==
LOC: ED 12:42 → CC2 19:00 → 2B-SURG 03-08 14:48
PROVIDERS: ADMIT Internal Medicine; ATTEND Internal Medicine
PROC: 0QH734Z Insertion of Internal Fixation Device into Left Upper Femur, Percutaneous Approach (ICD-10-PCS; principal; 2017-03-08)
DX: S72.002A Fracture of unspecified part of neck of left femur, initial encounter for closed fracture (principal); E44.1 Mild protein-calorie malnutrition; Z68.1 Body mass index [BMI] 19.9 or less, adult; I10 Essential (primary) hypertension; J44.9 Chronic obstructive pulmonary disease, unspecified; D69.6 Thrombocytopenia, unspecified; W18.39XA Other fall on same level, initial encounter; F03.90 Unspecified dementia, unspecified severity, without behavioral disturbance, psychotic disturbance, mood disturbance, and anxiety; Z88.5 Allergy status to narcotic agent; Z88.0 Allergy status to penicillin; Z91.041 Radiographic dye allergy status; Z90.49 Acquired absence of other specified parts of digestive tract; Z90.710 Acquired absence of both cervix and uterus; Y93.89 Activity, other specified; Y92.89 Other specified places as the place of occurrence of the external cause; Y99.8 Other external cause status; Z87.01 Personal history of pneumonia (recurrent)
CPT/HCPCS: 36415; 80048; 80053; 80074; 85007; 85025; 85027; 85610; 85730; 94640; 94760; 96374; 96375; 96376; C1713; C1769; G8978-GP; G8979-GP; J1170; J2270; J2370; J2405; J2704; J3370; J7030; J7042